=== PATIENT | male | born 1955 | race Caucasian/White ===

== ENCOUNTER 2021-06-22 05:36 | Emergency (ER) | payer OTHER ==
[2021-06-22 09:08] LABS: Albumin, Blood 3.5 g/dL (3.4-5.0); Albumin/Globulin Ratio 1.1 (0.8-1.8); Bilirubin, Total 0.5 mg/dL (0.1-1.0); Bun/Creatinine Ratio 15.1 (12.0-20.0); Calcium, Blood 9.3 mg/dL (8.5-10.1); Creatinine, Blood 0.93 mg/dL (0.60-1.20); Globulin, Blood 3.3 g/dL (2.2-4.0); Total Protein, Blood 6.8 g/dL (6.4-8.2)
[2021-06-22 09:09] LABS: BASOPHILS ABSOLUTE AUTO 0.03 K/mm3 (0.00-0.23); BASOPHILS PERCENT AUTO 1 % (0-2); EOSINOPHILS ABSOLUTE AUTO 0.11 K/mm3 (0.00-0.68); EOSINOPHILS PERCENT AUTO 2 % (0-6); Hematocrit 38.4 % (37.0-53.0); Hemoglobin 13.5 g/dL (13.5-17.5); IMMATURE GRAN ABSOLUTE AUTO 0.01 K/mm3 (0.00-0.10); IMMATURE GRAN PERCENT AUTO 0 % (0-1); LYMPHOCYTES ABSOLUTE AUTO 0.48 K/mm3 (0.84-5.20); LYMPHOCYTES PERCENT AUTO 8 % (21-46); MONOCYTES PERCENT AUTO 11 % (4-13); Mean Corpuscular HGB Conc 35.2 g/dL (31.5-36.5); Mean Corpuscular Volume 88 fL (80-100); Mean Platelet Volume 9.4 fL (9.1-12.4); NEUTROPHILS ABSOLUTE AUTO 4.83 K/mm3 (1.96-9.15); NEUTROPHILS PERCENT AUTO 78 % (41-73); Platelet Count 210 K/mm3 (150-400); RDW Coefficient Variation 12.3 % (11.7-14.2); RDW Standard Deviation 40.1 fL (35.1-46.3); Red Blood Cell Count 4.35 M/mm3 (4.30-5.90); White Blood Cell Count 6.16 K/mm3 (4.00-11.30)
[2021-06-22] MEDS ORDERED: GABAPENTIN600 MG PO (09:27)
[2021-06-22] MEDS ORDERED: DIURIL250 MG/5 M PO (09:28)
[2021-06-22] MEDS ORDERED: Norco 10-325 T1 EACH PO (09:31)
[2021-06-22 09:44] LABS: Influenza A, PCR NEGATIVE (NEGATIVE); Influenza B, PCR NEGATIVE (NEGATIVE); Resp Syncytial Virus, PCR NEGATIVE (NEGATIVE)
[2021-06-22 10:13] LABS: SARS-Cov-2 (COVID-19) PCR, MMC POSITIVE (NEGATIVE)
== END 2021-06-22 10:59 | disposition home or self-care (01) ==
LOC: ER 05:36
PROVIDERS: Emergency Medicine
DX: U07.1 COVID-19 (principal); I10 Essential (primary) hypertension; Z87.891 Personal history of nicotine dependence
CPT/HCPCS: 0241U; 71046; 80053; 83880; 85025; 93005; 93010; 96374; 99284-25; A9270; J1885